=== PATIENT | female | born 1995 | race American Indian/Alaskan Native ===

== ENCOUNTER 2021-05-10 09:44 | Emergency (ER) | payer OTHER ==
[2021-05-10] MEDS ORDERED: ACETAMINOPHEN 500 MG TAB PO STA (10:27)
[2021-05-10] MEDS ORDERED: IBUPROFEN 800 MG TAB PO STA (10:27)
--- NOTE | 2021-05-10 10:57 | Emergency Department Report ---
ED General Adult HPI - General Chief complaint: Extremity Injury, Lower Stated complaint: KNEE PAIN Time Seen by Provider: 05/10/21 10:06 Source: patient Mode of arrival: Ambulatory Limitations: No Limitations - History of Present Illness Initial comments: 25-year-old -[place] female patient presents with complaints of right knee pain starting last night. She states when squatting down to get an object, she felt a sudden pop in her knee had sudden pain. She rates her pain as a 9/10 in severity and states she has not tried any OTC medications for symptoms. Pain worsens with movement of the knee and with weightbearing, however she denies any decreased range of motion or loss of sensation/numbness/tingling in her leg. No other past medical history per patient. Severity scale (0 -10): 7 - Related Data Previous Rx's Medication Instructions Recorded Last Taken Type Naproxen [Naprosyn] 500 mg PO BID PRN #20 tablet 05/10/21 Unknown Rx Allergies Allergy/AdvReac Type Severity Reaction Status Date / Time No Known Allergies Allergy Unverified 05/10/21 09:50 ED Review of Systems ROS: Stated complaint: KNEE PAIN Other details as noted in HPI Musculoskeletal: arthralgia. denies: joint swelling Skin: denies: change in color Neurological: denies: numbness, paresthesias Hematological/Lymphatic: denies: swollen glands ED Past Medical Hx - Medications Home Medications: Home Medications Medication Instructions Recorded Confirmed Last Taken Type Naproxen [Naprosyn] 500 mg PO BID PRN #20 tablet 05/10/21 Unknown Rx ED Physical Exam - General Limitations: No Limitations General appearance: alert, in no apparent distress - Head Head exam: Present: atraumatic, normocephalic - Eye Eye exam: Present: normal appearance - Respiratory Respiratory exam: Absent: respiratory distress - Cardiovascular Cardiovascular Exam: Present: regular rate - Extremities Exam Extremities exam: Present: other (Tenderness to palpation noted to right medial knee without swelling, erythema, warmth, or obvious deformities noted; pain worsens with range of motion, however there is full range of motion of the knee noted) - Neurological Exam Neurological exam: Present: alert, oriented X3, abnormal gait (Antalgic) - Psychiatric Psychiatric exam: Present: normal affect, normal mood - Skin Skin exam: Present: warm, dry, intact, normal color. Absent: rash, cyanosis, pallor ED Course Vital Signs 05/10/21 09:50 Temperature 98.7 F Pulse Rate 69 Respiratory 17 Rate Blood Pressure 121/73 [Right] O2 Sat by Pulse 100 Oximetry ED Medical Decision Making - Radiology Data Radiology results: report reviewed XR knee 3V RT INDICATION: R KNEE medial pain after injury. COMPARISON: No relevant prior imaging study available. FINDINGS: No acute skeletal abnormality. No significant soft tissue abnormality. IMPRESSION: 1. No acute findings. - Medical Decision Making 25-year-old -[place] female patient presents with complaints of right knee pain starting last night. She states when squatting down to get an object, she felt a sudden pop in her knee had sudden pain. She rates her pain as a 9/10 in severity and states she has not tried any OTC medications for symptoms. Pain worsens with movement of the knee and with weightbearing, however she denies any decreased range of motion or loss of sensation/numbness/tingling in her leg. No other past medical history per patient. X-ray is negative for any acute bony abnormalities. Will treat patient for knee sprain with knee immobilizer and crutches. Recommend rice method also treatment along with NSAIDs. Patient is to follow-up with orthopedics as needed. Discussed presumptive diagnosis, care plan, and signs and symptoms that should prompt immediate return to the ED with patient who verbalizes understanding. Critical care attestation.: If time is entered above; I have spent that time in minutes in the direct care of this critically ill patient, excluding procedure time. ED Disposition Clinical Impression: Right knee injury Disposition: HOME / SELF CARE / HOMELESS Is pt being admited?: No Condition: Stable Instructions: Knee Sprain, Adult, [id number] Prescriptions: Naproxen [Naprosyn] 500 mg PO BID PRN #20 tablet PRN Reason: pain Referrals: [facility] [Provider Group] - as needed CHITO ELIZABETH MD [Staff Physician] - as needed Forms: Work/School Release Form(ED)
--- NOTE | 2021-05-10 11:14 | XRay Report ---
XR knee 3V RT INDICATION: R KNEE medial pain after injury. COMPARISON: No relevant prior imaging study available. FINDINGS: No acute skeletal abnormality. No significant soft tissue abnormality. IMPRESSION: 1. No acute findings. Signer Name: Baljinder House MD Signed: 05/10/2021 11:10 AM Workstation Name: [id number]
[2021-05-10 12:04] VITALS: BP 118/64
== END 2021-05-10 12:04 | disposition home or self-care (01) ==
LOC: ED 09:44
DX: S89.91XA Unspecified injury of right lower leg, initial encounter (principal); X58.XXXA Exposure to other specified factors, initial encounter; Y93.89 Activity, other specified; Y92.89 Other specified places as the place of occurrence of the external cause; Y99.8 Other external cause status
CPT/HCPCS: 99283